=== PATIENT | male | born 1985 | race Caucasian/White ===

== ENCOUNTER 2018-10-04 10:04 | Emergency (ER) | payer OTHER ==
[~2018-10-04] VITALS: Ht 167.6 cm; Wt 68.0 kg
[2018-10-04] MEDS ORDERED: NORCO 5-325 TA1 EACH PO (11:03)
[2018-10-04 11:42] VITALS: BP 135/76
[2018-10-05] MEDS ORDERED: NORCO 5-325 TA1 EACH PO (11:41)
== END 2018-10-04 11:43 | disposition home or self-care (01) ==
LOC: ER 10:04
DX: S93.491A Sprain of other ligament of right ankle, initial encounter (principal); S90.811A Abrasion, right foot, initial encounter; W10.9XXA Fall (on) (from) unspecified stairs and steps, initial encounter; Y92.89 Other specified places as the place of occurrence of the external cause; Y93.89 Activity, other specified; Y99.8 Other external cause status

== ENCOUNTER 2018-10-05 08:10 | Emergency (ER) | payer OTHER ==
[~2018-10-05] VITALS: Ht 165.1 cm; Wt 79.4 kg
[~2018-10-05 08:10] MED LIST: NORCO 5-325 TA1 EACH PO
[2018-10-05] MEDS ORDERED: NORCO 5-325 TA1 EACH PO (11:41)
[2018-10-05 11:48] VITALS: BP 110/70
== END 2018-10-05 11:51 | disposition home or self-care (01) ==
LOC: ER 08:10
DX: S92.111A Displaced fracture of neck of right talus, initial encounter for closed fracture (principal); W10.9XXA Fall (on) (from) unspecified stairs and steps, initial encounter; Y92.89 Other specified places as the place of occurrence of the external cause; Y93.89 Activity, other specified; Y99.8 Other external cause status